=== PATIENT | male | born 1950 | race Caucasian/White ===

== ENCOUNTER 2019-10-30 17:20 | Observation (INO) | payer MEDICARE, MEDICAID ==
[2019-10-30] MEDS ORDERED: Lidocaine 2% 100 MG/5 ML Syringe IVPUSH PRN (18:18)
[2019-10-30] MEDS ORDERED: Sodium Chloride 0.9% 10 ML Syringe FLUSH PRN (18:18)
[2019-10-30] MEDS ORDERED: EPINEPHrine 1:10,000 1 MG/10 ML Syringe IVPUSH PRN (18:18)
[2019-10-30] MEDS ORDERED: Atropine 0.1 MG/ML 10 ML Syringe IVPUSH PRN (18:18)
[2019-10-30] MEDS ORDERED: Nitroglycerin 0.4 MG Tab.SL SL PRN (18:18)
[2019-10-30] MEDS ORDERED: Aspirin 81 MG Tab.Chew PO ONE (18:22)
[2019-10-30 18:43] LABS: ANION GAP 17.6 mmol/L (5-15); CHLORIDE,CL 102 mmol/L (98-115); SODIUM,NA 139 mmol/L (136-145)
[2019-10-30] MEDS ORDERED: Alum Hydrox/Mag Hydrox/Simeth 30 ML, Lidocaine 2% 15 ML PO ONE ×2 (20:30)
[2019-10-30] MEDS ORDERED: Melatonin 3 MG Tab PO PRN (21:00)
[2019-10-31] MEDS ORDERED: [UNRECOGNIZED DRUG - OTHER] PO SCH (09:00)
[2019-10-31] MEDS ORDERED: Rosuvastatin 10 MG Tab PO SCH (09:00)
[2019-10-31] MEDS ORDERED: Lisinopril 20 MG Tab PO SCH (09:00)
[2019-10-31] MEDS ORDERED: Aspirin 81 MG Tab.EC PO SCH (09:00)
[2019-10-31] MEDS ORDERED: HYDROCHLOROTHIAZIDE PO SCH (09:00)
[2019-10-31] MEDS ORDERED: BISOPROLOL PO SCH (09:00)
--- NOTE | 2019-10-31 09:51 | PCM.DCSUM1 ---
Discharge Summary - Hospital Course Diagnosis: Stroke: No - Discharge Data Discharge Date: 10/31/19 Discharge Disposition: Home, Self-Care 01 Condition: Good - Referral to Home Health Primary Care Physician: Wanda Cueva MD - Patient Instructions Activity: No Strenuous Activities Driving: May Drive Today Showering/Bathing: May Shower Notify Provider of: Increased Pain, Nausea and/or Vomiting (report any more chest pain sweating this jaw numbness or pain or any radiation down your arm or back) - Discharge Plan *PRESCRIPTION DRUG MONITORING PROGRAM REVIEWED*: Not Applicable *COPY OF PRESCRIPTION DRUG MONITORING REPORT IN PATIENT HUMZA: Not Applicable Prescriptions/Med Rec: Isosorbide Mononitrate [Imdur] 30 mg PO DAILY #30 tab.er Omeprazole 20 mg PO DAILY #30 capsule. Home Medications: Home Meds Aspirin [Halfprin] 81 mg PO DAILY 08/15/13 [History] Bisoprolol/Hydrochlorothiazide [Bisoprolol/HCTZ 5-6.25 MG] 1 tab PO DAILY [History] Lisinopril 20 mg PO DAILY 08/15/13 [History] Rosuvastatin [Crestor] 20 mg PO DAILY 08/15/13 [History] Isosorbide Mononitrate [Imdur] 30 mg PO DAILY #30 tab.er 10/31/19 [Rx] Omeprazole 20 mg PO DAILY #30 capsule. 10/31/19 [Rx] Referrals: Yumi Stone NP [Nurse Practitioner] - 11/06/19 2:00 pm (ANYTIME NEXT WEEK OR ANYBODY OF HIS CHOICE) - Discharge Summary/Plan Comment DC Time >30 min.: No Discharge Summary/Plan Comment: Final diagnosis ACS ruled out Rule out CAD; intermediate pretest probability Atypical angina History summary Mr Young is a obese 68 year old male who was admitted into observation yesterday by Yumi Stone nurse practitioner from [facility]. Patient was seen and evaluated when he came in due to cough and chest tightness. Although he reported in the clinic day of admission a 1-week history of intermittent chest tightness he tells this bid writer that he has had this probably longer with symptoms occur at rest no much with activity. Denies claudication No associated symptoms of dyspnea, diaphoresis, nausea, or vomiting or acid reflux type symptoms or water brash--however mild dry cough in the a.m. Denied any radiation of pain or chest palpitations. He does notes mild anxiety/ nervousness. Denies claudication. Pertinent past medical history --former smoker for 4-5 years quitting 40 years ago. --No Hx of heart issues. --HTN, controlled. ASA for primary prevention --HLD, favorable profile reviewed- [place] --Obesity Hospital course Uneventful without chest pain. No overnight abberancy noted on overnight ECG telemetry strips. His initial troponin was 0.08 however negative serialization. Reviewing of patient's admitting ECG does have some anterior lateral ichemia note with inverted T waves--patient was asymptomatic Medication changes/adjustments upon discharge Imdur low-dose 30 mg p.o. daily (newly added) Omeprazole, 20 mg p.o. daily, 301 refill Continue aspirin Due to the patient's modifiable/non-modifiable risk factors with history will need outpatient stress test - General Info Functional Status: Reports: Pain Controlled, Tolerating Diet. Denies: New Symptoms - Review of Systems General: Reports: No Symptoms HEENT: Reports: No Symptoms Pulmonary: Reports: No Symptoms Cardiovascular: Denies: Chest Pain, Palpitations, Dyspnea on Exertion, Orthopnea , PND, Edema, Lightheadedness Gastrointestinal: Reports: No Symptoms. Denies: Decreased Appetite, Nausea Musculoskeletal: Denies: Neck Pain, Shoulder Pain, Arm Pain, Back Pain Skin: Reports: No Symptoms Neurological: Denies: Confusion Psychiatric: Reports: No Symptoms - Patient Data Vitals - Most Recent: Last Vital Signs Temp 98.2 F 10/31/19 06:38 Pulse 84 10/31/19 06:38 Resp 20 10/31/19 06:38 BP 147/98 H 10/31/19 08:07 Pulse Ox 97 10/31/19 06:45 Weight - Most Recent: 197 lb 9 oz I&O - Last 24 hours: Intake & Output 10/30/19 10/31/19 10/31/19 22:59 06:59 14:59 Intake Total 620 100 Balance 620 100 Lab Results - Last 24 hrs: Laboratory Results - last 24 hr 10/30/19 10/30/19 10/31/19 Range/Units 06:15 06:15 00:04 WBC 7.88 (5.00-10.00) 10^3/uL RBC 5.31 (4.50-6.00) 10^6/uL Hgb 16.5 (13.0-17.0) g/dL Hct 48.0 (40.0-52.0) % MCV 90.4 (82.0-92.0) fL MCH 31.1 H (27.0-31.0) pg MCHC 34.4 (32.0-36.0) g/dL RDW 12.2 (11.5-14.5) % Plt Count 286 (150-400) 10^3/uL MPV 9.7 (7.4-10.4) fL Immature Gran % (Auto) 0.3 (0.0-5.0) % Neut % (Auto) 58.9 (50.0-70.0) % Lymph % (Auto) 27.3 (20.0-40.0) % [place] % (Auto) 12.7 H (2.0-8.0) % Eos % (Auto) 0.4 L (1.0-3.0) % Baso % (Auto) 0.4 (0.0-1.0) % Immature Gran # (Auto) 0.02 (0.00-0.50) 10^3/uL Neut # (Auto) 4.65 (2.50-7.00) 10^3/uL Lymph # (Auto) 2.15 (1.00-4.00) 10^3/uL [place] # (Auto) 1.00 H (0.10-0.80) 10^3/uL Eos # (Auto) 0.03 L (0.10-0.30) 10^3/uL Baso # (Auto) 0.03 (0.00-0.10) 10^3/uL Sodium 139 (136-145) mmol/L Potassium 4.6 (3.3-5.3) mmol/L Chloride 102 (98-115) mmol/L Carbon Dioxide 24.0 (21.0-32.0) mmol/L Anion Gap 17.6 H (5-15) mmol/L BUN 20 (6-25) mg/dL Creatinine 0.67 (0.51-1.17) mg/dL Est Cr Clr Drug Dosing TNP Estimated GFR (MDRD) > 60 mL/min Glucose 101 H (75 - 99) mg/dL Calcium 9.0 (8.7-10.3) mg/dL Total Bilirubin 0.8 (0.2-1.0) mg/dL AST 56 H (15-37) U/L ALT 68 (12-78) U/L Alkaline Phosphatase 38 L (46-116) IU/L Troponin I 0.08 H* 0.06 (0.00-0.070) ng/mL Total Protein 7.8 (6.4-8.2) g/dL Albumin 3.96 (3.00-4.80) g/dL 10/31/19 Range/Units 06:50 WBC (5.00-10.00) 10^3/uL RBC (4.50-6.00) 10^6/uL Hgb (13.0-17.0) g/dL Hct (40.0-52.0) % MCV (82.0-92.0) fL MCH (27.0-31.0) pg MCHC (32.0-36.0) g/dL RDW (11.5-14.5) % Plt Count (150-400) 10^3/uL MPV (7.4-10.4) fL Immature Gran % (Auto) (0.0-5.0) % Neut % (Auto) (50.0-70.0) % Lymph % (Auto) (20.0-40.0) % [place] % (Auto) (2.0-8.0) % Eos % (Auto) (1.0-3.0) % Baso % (Auto) (0.0-1.0) % Immature Gran # (Auto) (0.00-0.50) 10^3/uL Neut # (Auto) (2.50-7.00) 10^3/uL Lymph # (Auto) (1.00-4.00) 10^3/uL [place] # (Auto) (0.10-0.80) 10^3/uL Eos # (Auto) (0.10-0.30) 10^3/uL Baso # (Auto) (0.00-0.10) 10^3/uL Sodium (136-145) mmol/L Potassium (3.3-5.3) mmol/L Chloride (98-115) mmol/L Carbon Dioxide (21.0-32.0) mmol/L Anion Gap (5-15) mmol/L BUN (6-25) mg/dL Creatinine (0.51-1.17) mg/dL Est Cr Clr Drug Dosing Estimated GFR (MDRD) mL/min Glucose (75 - 99) mg/dL Calcium (8.7-10.3) mg/dL Total Bilirubin (0.2-1.0) mg/dL AST (15-37) U/L ALT (12-78) U/L Alkaline Phosphatase (46-116) IU/L Troponin I < 0.04 (0.00-0.070) ng/mL Total Protein (6.4-8.2) g/dL Albumin (3.00-4.80) g/dL Med Orders - Current: Current Medications Aspirin (Halfprin) 81 mg PO DAILY [facility] Last Admin: 10/31/19 08:06 Dose: 81 mg Atropine Sulfate (Atropine 0.1 Mg/Ml) 0 mg IVPUSH ASDIRECTED PRN PRN Reason: Heart. Epinephrine HCl (Epinephrine 1:10,000) 1 mg IVPUSH ASDIRECTED PRN PRN Reason: Heart. Lidocaine HCl (Xylocaine 2%) 0 mg IVPUSH ASDIRECTED PRN PRN Reason: Heart. Lisinopril (Prinivil) 20 mg PO DAILY [facility] Last Admin: 10/31/19 08:07 Dose: 20 mg Melatonin (Melatonin) 3 mg PO BEDTIME PRN PRN Reason: Insomnia Last Admin: 10/30/19 23:04 Dose: 3 mg Nitroglycerin (Nitrostat) 0.4 mg SL ASDIRECTED PRN PRN Reason: Heart. Non-Formulary Medication (Bisoprolol/Hydrochlorothiazide [Bisoprolol/Hctz 5- 6.25 Mg]) 1 tab PO DAILY [facility] Rosuvastatin Calcium (Crestor) 20 mg PO DAILY [facility] Last Admin: 10/31/19 08:06 Dose: 20 mg Sodium Chloride (Saline Flush) 10 ml FLUSH Q8HR PRN PRN Reason: keep vein open Last Admin: 10/30/19 22:00 Dose: 10 ml Discontinued Medications Aspirin (Aspirin) 324 mg PO ONETIME ONE Stop: 10/30/19 18:23 Last Admin: 10/30/19 18:28 Dose: 324 mg Al Hydroxide/Mg Hydroxide 30 (ml/ Lidocaine HCl 15 ml) 0 ml PO ONETIME ONE Stop: 10/30/19 20:31 Last Admin: 10/30/19 21:11 Dose: 45 ml - Exam Quality Assessment: Denies: Supplemental Oxygen General: Reports: Alert, Oriented Neck: Reports: Supple Lungs: Reports: Clear to Auscultation, Normal Respiratory Effort Cardiovascular: Reports: Regular Rate, Regular Rhythm GI/Abdominal Exam: Normal Bowel Sounds, Soft Back Exam: Denies: CVA Tenderness (L), CVA Tenderness (R) Extremities: No Pedal Edema Psy/Mental Status: Reports: Alert, Normal Affect, Normal Mood
== END 2019-10-31 11:40 | disposition home or self-care (01) ==
LOC: KA.MS 17:20
PROVIDERS: ADMIT Nurse Practitioner Family; ATTEND Family Medicine
DX: R07.89 Other chest pain (principal); R94.31 Abnormal electrocardiogram [ECG] [EKG]; I10 Essential (primary) hypertension; E78.5 Hyperlipidemia, unspecified; E66.9 Obesity, unspecified; Z79.82 Long term (current) use of aspirin; Z79.899 Other long term (current) drug therapy; Z87.891 Personal history of nicotine dependence; Z68.34 Body mass index [BMI] 34.0-34.9, adult
CPT/HCPCS: 36415; 80053; 84484; 85025; A9270; G0378

== ENCOUNTER 2021-04-30 19:22 | Emergency (ER) | payer MEDICARE, MEDICAID ==
[2021-04-30] MEDS ORDERED: Sodium Chloride 0.9% 10 ML Syringe FLUSH PRN (19:34)
--- NOTE | 2021-04-30 20:00 | EDM.PDOC ---
ED HPI GENERAL MEDICAL PROBLEM - General Chief Complaint: General Stated Complaint: GENERALIZED WEAKNESS/LIGHTHEADEDNESS Time Seen by Provider: 04/30/21 19:45 Source of Information: Reports: Patient, Family History Limitations: Reports: No Limitations - History of Present Illness INITIAL COMMENTS - FREE TEXT/NARRATIVE: 70 YO WM PRESENTS TO ER ACCOMPANIED BY DAUGHTER WITH COMPLAINTS OF LIGHTHEADEDNESS AND GENERALIZED WEAKNESS WHICH BEGAN 7 DAYS AGO. PT WAS SEEN IN [facility] 04/26/21 [facility] [place] [facility] LAST NIGHT 04/29/2021 AND DISCHARGED FOR SIMILAR COMPLAINTS. FAMILY UNCLEAR OF LABS OR DIAGNOSIS. PT DENIES FEVER/CHILLS, NO COUGH/CONGESTION, NO SORE THROAT, NO SHORTNESS OF BREATH. PT DENIES CHEST PAIN, NO N/V/D, NO DIAPHORESIS, NO HEADACHE. PT CONTINUES TO STATE I JUST FEEL "TIRED". SAO2-95% RA, BP-140/80s AND AFEBRILE. Onset Date: 04/26/21 Duration: Week(s): (1) Location: Reports: Generalized Quality: Reports: Ache Severity: Mild Improves with: Reports: Rest Worsens with: Reports: Movement Associated Symptoms: Reports: No Other Symptoms, Malaise, Weakness - Related Data Allergies Allergy/AdvReac Type Severity Reaction Status Date / Time No Known Allergies Allergy Verified 04/30/21 19:25 Home Meds: Home Meds Aspirin [Halfprin] 81 mg PO DAILY 08/15/13 [History] Bisoprolol/Hydrochlorothiazide [Bisoprolol/HCTZ 5-6.25 MG] 1 tab PO DAILY 08/15/13 [History] Lisinopril 20 mg PO DAILY 08/15/13 [History] Rosuvastatin [Crestor] 20 mg PO DAILY 08/15/13 [History] Isosorbide Mononitrate [Imdur] 30 mg PO DAILY #30 tab.er 10/31/19 [Rx] Omeprazole 20 mg PO DAILY #30 capsule. 10/31/19 [Rx] predniSONE [Prednisone] 50 mg PO DAILY #3 tablet 04/30/21 [Rx] Past Medical History HEENT History: Reports: Other (See Below) Other HEENT History: reading glasses Cardiovascular History: Reports: High Cholesterol, Hypertension Musculoskeletal History: Reports: Other (See Below) Other Musculoskeletal History: lac to R little finger Endocrine/Metabolic History: Reports: Obesity/BMI 30+ - Infectious Disease History Infectious Disease History: Reports: Chicken Pox, Measles - Past Surgical History GI Surgical History: Reports: Colonoscopy Social & Family History - Family History Family Medical History: No Pertinent Family History - Caffeine Use Caffeine Use: Reports: Coffee Caffeine Use Comment: 2 cups a day ED ROS GENERAL - Review of Systems Review Of Systems: See Below Constitutional: Reports: Malaise, Weakness HEENT: Reports: No Symptoms Respiratory: Reports: No Symptoms Cardiovascular: Reports: No Symptoms Endocrine: Reports: No Symptoms GI/Abdominal: Reports: No Symptoms : Reports: No Symptoms Musculoskeletal: Reports: No Symptoms Skin: Reports: No Symptoms Neurological: Reports: Dizziness Psychiatric: Reports: No Symptoms Hematologic/Lymphatic: Reports: No Symptoms Immunologic: Reports: No Symptoms ED EXAM, GENERAL - Physical Exam Exam: See Below Exam Limited By: No Limitations General Appearance: Alert, WD/WN, No Apparent Distress Eye Exam: Bilateral Eye: EOMI, PERRL Ears: Normal External Exam, Normal Canal, Hearing Grossly Normal, Normal TMs Nose: Normal Inspection, Normal Mucosa, No Blood Throat/Mouth: Normal Inspection, Normal Lips, Normal Teeth, Normal Gums, Normal Oropharynx, Normal Voice, No Airway Compromise Head: Atraumatic, Normocephalic Neck: Normal Inspection, Supple, Non-Tender, Full Range of Motion Respiratory/Chest: No Respiratory Distress, Lungs Clear, Normal Breath Sounds, No Accessory Muscle Use, Chest Non-Tender Cardiovascular: Normal Peripheral Pulses, Regular Rate, Rhythm, No Edema, No Gallop, No JVD, No Murmur, No Rub GI/Abdominal: Normal Bowel Sounds, Soft, Non-Tender, No Organomegaly, No Distention, No Abnormal Bruit, No Mass Back Exam: Normal Inspection, Full Range of Motion, NT Extremities: Normal Inspection, Normal Range of Motion, Non-Tender, Normal Capillary Refill, No Pedal Edema Neurological: Alert, Oriented, CN II-XII Intact, Normal Cognition, Normal Gait, No Motor/Sensory Deficits Psychiatric: Normal Affect, Normal Mood Skin Exam: Warm, Dry, Intact, Normal Color, No Rash Lymphatic: No Adenopathy #1 Interpretation EKG Date: 04/30/21 Time: 19:49 Rhythm: NSR Rate (Beats/Min): 94 [place]: Normal P-Wave: Present QRS: Normal ST-T: Normal QT: Normal Comparison: NA - No Prior EKG Course - Vital Signs Last Recorded V/S: Last Vital Signs Temp 98.5 F 04/30/21 20:25 Pulse 88 04/30/21 20:00 Resp 20 04/30/21 20:00 BP 147/88 H 04/30/21 20:00 Pulse Ox 93 L 04/30/21 19:53 - Orders/Labs/Meds Orders: Active Orders 24 hr Category Date Time Status Peripheral IV Care [RC] . DIRECTED Care 04/30/21 19:34 Active RT Post Treatment Assessment [RC] Click to Edit Care 04/30/21 20:37 Ordered RT Pre-Treatment Assessment [RC] Click to Edit Care 04/30/21 20:37 Ordered Chest 2V [CR] Stat Exams 04/30/21 19:59 Ordered Albuterol [Ventolin HFA] Med 04/30/21 20:36 Ordered See Dose Instructions INH Q2H PRN Sodium Chloride 0.9% @ 999 MLS/HR (1000ml) Med 04/30/21 20:07 Ordered Sodium Chloride 0.9% [Normal Saline] 1,000 ml IV .BOLUS Sodium Chloride 0.9% [Saline Flush] Med 04/30/21 19:34 Active 10 ml FLUSH Q8HR PRN Peripheral IV Insertion Adult [OM.PC] Routine Oth 04/30/21 19:34 Ordered EKG 12 Lead [EK] Urgent Ther 04/30/21 19:34 Ordered Medication Orders Albuterol (Albuterol 8 Gm Inhaler) 0 gm INH Q2H PRN PRN Reason: Shortness of Breath Last Admin: 04/30/21 20:41 Dose: 1 puff Documented by: Sodium Chloride (Normal Saline) 1,000 mls @ 999 mls/hr IV .BOLUS ONE Stop: 04/30/21 21:07 Last Admin: 04/30/21 20:09 Dose: 999 mls/hr Documented by: JERI Sodium Chloride (Sodium Chloride 0.9% 10 Ml Syringe) 10 ml FLUSH Q8HR PRN PRN Reason: keep vein open Last Admin: 04/30/21 20:09 Dose: 10 ml Documented by: JERI Labs: Laboratory Tests 04/30/21 04/30/21 04/30/21 Range/Units 19:45 19:45 19:45 WBC 5.31 (5.00-10.00) 10^3/uL RBC 5.04 (4.50-6.00) 10^6/uL Hgb 15.7 (13.0-17.0) g/dL Hct 43.9 (40.0-52.0) % MCV 87.1 D (82.0-92.0) fL MCH 31.2 H (27.0-31.0) pg MCHC 35.8 (32.0-36.0) g/dL RDW 11.6 (11.5-14.5) % Plt Count 159 D (150-400) 10^3/uL MPV 9.7 (7.4-10.4) fL Sodium (136-145) mmol/L Potassium (3.5-5.1) mmol/L Chloride (98-107) mmol/L Carbon Dioxide (21.0-32.0) mmol/L Anion Gap (5-15) mmol/L BUN (7-18) mg/dL Creatinine (0.51-1.17) mg/dL Est Cr Clr Drug Dosing mL/min Estimated GFR (MDRD) mL/min Glucose (70-140) mg/dL Lactic Acid (0.4-2.0) mmol/L Calcium (8.7-10.3) mg/dL Total Bilirubin (0.2-1.0) mg/dL AST (15-37) U/L ALT (14-63) U/L Alkaline Phosphatase (46-116) U/L Total Protein (6.4-8.2) g/dL Albumin (3.40-5.00) g/dL Specimen Type Urinvoid Urine Color Yellow (YELLOW) Urine Appearance Clear (CLEAR) Urine pH 5.5 (5.0-9.0) Ur Specific [place] 1.020 (1.005-1.030) Urine Protein 100 H (NEGATIVE) mg/dL Urine Glucose (UA) Negative (NEGATIVE) mg/dL Urine Ketones Negative (NEGATIVE) mg/dL Urine Occult Blood Trace-intact H (NEGATIVE) Urine Nitrite Negative (NEGATIVE) Urine Bilirubin Negative (NEGATIVE) Urine Urobilinogen 1.0 (0.2-1.0) E.U./dL Ur Leukocyte Esterase Negative (NEGATIVE) Urine RBC 0-5 (0-5) /HPF Urine WBC 0-5 (0-5) /HPF Ur Epithelial Cells Few /LPF Urine Bacteria Rare (NONE TO FEW) /HPF Urine Mucus Few H (NEGATIVE) /LPF SARS CoV-2 RNA Rapid [place] Positive H (NEGATIVE) 04/30/21 04/30/21 Range/Units 19:45 19:45 WBC (5.00-10.00) 10^3/uL RBC (4.50-6.00) 10^6/uL Hgb (13.0-17.0) g/dL Hct (40.0-52.0) % MCV (82.0-92.0) fL MCH (27.0-31.0) pg MCHC (32.0-36.0) g/dL RDW (11.5-14.5) % Plt Count (150-400) 10^3/uL MPV (7.4-10.4) fL Sodium 133 L (136-145) mmol/L Potassium 3.8 (3.5-5.1) mmol/L Chloride 98 (98-107) mmol/L Carbon Dioxide 24.2 (21.0-32.0) mmol/L Anion Gap 14.6 (5-15) mmol/L BUN 10 (7-18) mg/dL Creatinine 0.76 (0.51-1.17) mg/dL Est Cr Clr Drug Dosing 89.15 mL/min Estimated GFR (MDRD) > 60 mL/min Glucose 140 (70-140) mg/dL Lactic Acid 0.8 (0.4-2.0) mmol/L Calcium 8.2 L (8.7-10.3) mg/dL Total Bilirubin 0.6 (0.2-1.0) mg/dL AST 54 H (15-37) U/L ALT 43 (14-63) U/L Alkaline Phosphatase 40 L (46-116) U/L Total Protein 6.9 (6.4-8.2) g/dL Albumin 2.97 L (3.40-5.00) g/dL Specimen Type Urine Color (YELLOW) Urine Appearance (CLEAR) Urine pH (5.0-9.0) Ur Specific [place] (1.005-1.030) Urine Protein (NEGATIVE) mg/dL Urine Glucose (UA) (NEGATIVE) mg/dL Urine Ketones (NEGATIVE) mg/dL Urine Occult Blood (NEGATIVE) Urine Nitrite (NEGATIVE) Urine Bilirubin (NEGATIVE) Urine Urobilinogen (0.2-1.0) E.U./dL Ur Leukocyte Esterase (NEGATIVE) Urine RBC (0-5) /HPF Urine WBC (0-5) /HPF Ur Epithelial Cells /LPF Urine Bacteria (NONE TO FEW) /HPF Urine Mucus (NEGATIVE) /LPF SARS CoV-2 RNA Rapid [place] (NEGATIVE) Meds: Medications Generic Name Dose Route Start Last Admin Trade Name Freq PRN Reason Stop Dose Admin Albuterol 0 gm 04/30/21 20:36 04/30/21 20:41 Albuterol 8 Gm Inhaler INH 1 puff Q2H PRN Administration Shortness of Breath Sodium Chloride 1,000 mls @ 999 mls/hr 04/30/21 20:07 04/30/21 20:09 Normal Saline IV 04/30/21 21:07 999 mls/hr .BOLUS ONE Administration Sodium Chloride 10 ml 04/30/21 19:34 04/30/21 20:09 Sodium Chloride 0.9% 10 Ml Syringe FLUSH 10 ml Q8HR PRN Administration keep vein open Discontinued Medications Generic Name Dose Route Start Last Admin Trade Name Freq PRN Reason Stop Dose Admin Acetaminophen 1,000 mg 04/30/21 20:21 04/30/21 20:25 Acetaminophen 500 Mg Tab PO 04/30/21 20:22 1,000 mg ONETIME ONE Administration Dexamethasone 6 mg 04/30/21 20:19 04/30/21 20:25 Dexamethasone 4 Mg/Ml Sdv IVPUSH 04/30/21 20:20 6 mg ONETIME ONE Administration Sodium Chloride Confirm 04/30/21 20:08 04/30/21 20:23 Normal Saline Administered 04/30/21 20:09 Not Given Dose 1,000 mls @ as directed .ROUTE .STK-MED ONE Prednisone 60 mg 04/30/21 20:36 04/30/21 20:41 Prednisone 20 Mg Tab PO 04/30/21 20:37 60 mg ONETIME ONE Administration Departure - Departure Time of Disposition: 20:34 Disposition: Home, Self-Care 01 Condition: Fair Clinical Impression: COVID-19, Pneumonia due to COVID-19 virus - Discharge Information Prescriptions: predniSONE [Prednisone] 50 mg PO DAILY #3 tablet Instructions: 10 Things You Can Do to Manage Your COVID-19 Symptoms at Home - [facility] (01/28/2021), Community-Acquired Pneumonia, Adult Referrals: Wanda Cueva MD [Primary Care Provider] - Forms: ED Department Discharge Additional Instructions: 1. DISCHARGE HOME 2. ZINC 50MG DAILY, VIT C 1000MG TWICE/DAY AND VIT D3 25UG DAILY 3. PREDNISONE 60MG DAILY X 5 DAYS 4. ALBUTEROL INHALER 2 PUFF EVERY 4 HOURS AND NEEDED 5. QUARANTINE FOR 10 DAYS FROM TIME OF SYMPTOMS- UNTIL 05/03/2021 IF FEELING BETTER 6. RETURN TO ER FOR SHORTNESS OF BREATH 7. TYLENOL 1000MG EVERY 6 HOURS/MOTRIN 600MG EVERY 6 HOURS NEEDED FOR SYMPTOMS 8. FOLLOW UP IN CLINIC NEEDED FOR FURTHER MANAGEMENT Sepsis Event Note (ED) - Evaluation Sepsis Screening Result: No Definite Risk - Focused Exam Vital Signs: Vital Signs Temp Temp Pulse Resp BP Pulse Ox 04/30/21 20:25 98.5 F 04/30/21 20:00 88 20 147/88 H 04/30/21 19:53 98.5 F 90 20 142/86 H 93 L - My Orders Last 24 Hours: My Active Orders 04/30/21 19:34 Peripheral IV Care [RC] . DIRECTED Sodium Chloride 0.9% [Saline Flush] 10 ml FLUSH Q8HR PRN Peripheral IV Insertion Adult [OM.PC] Routine EKG 12 Lead [EK] Urgent 04/30/21 19:59 Chest 2V [CR] Stat 04/30/21 20:07 Sodium Chloride 0.9% @ 999 MLS/HR (1000ml) Sodium Chloride 0.9% [Normal Saline] 1,000 ml IV .BOLUS 04/30/21 20:36 Albuterol [Ventolin HFA] See Dose Instructions INH Q2H PRN 04/30/21 20:37 RT Post Treatment Assessment [RC] Click to Edit RT Pre-Treatment Assessment [RC] Click to Edit - Assessment/Plan Last 24 Hours: My Active Orders 04/30/21 19:34 Peripheral IV Care [RC] . DIRECTED Sodium Chloride 0.9% [Saline Flush] 10 ml FLUSH Q8HR PRN Peripheral IV Insertion Adult [OM.PC] Routine EKG 12 Lead [EK] Urgent 04/30/21 19:59 Chest 2V [CR] Stat 04/30/21 20:07 Sodium Chloride 0.9% @ 999 MLS/HR (1000ml) Sodium Chloride 0.9% [Normal Saline] 1,000 ml IV .BOLUS 04/30/21 20:36 Albuterol [Ventolin HFA] See Dose Instructions INH Q2H PRN 04/30/21 20:37 RT Post Treatment Assessment [RC] Click to Edit RT Pre-Treatment Assessment [RC] Click to Edit Assessment:: 1. POSITIVE FOR COVID-19 2. COVID PNEUMONIA Plan: 1. DISCHARGE HOME 2. ZINC 50MG DAILY, VIT C 1000MG TWICE/DAY AND VIT D3 25UG DAILY 3. PREDNISONE 60MG DAILY X 5 DAYS 4. ALBUTEROL INHALER 2 PUFF EVERY 4 HOURS AND NEEDED 5. QUARANTINE FOR 10 DAYS FROM TIME OF SYMPTOMS- UNTIL 05/03/2021 IF FEELING BETTER 6. RETURN TO ER FOR SHORTNESS OF BREATH 7. TYLENOL 1000MG EVERY 6 HOURS/MOTRIN 600MG EVERY 6 HOURS NEEDED FOR SYMPTOMS 8. FOLLOW UP IN CLINIC NEEDED FOR FURTHER MANAGEMENT
[2021-04-30] MEDS ORDERED: Sodium Chloride 0.9% 1,000 ML IV ONE (20:07)
[2021-04-30 20:08] LABS: ANION GAP 14.6 mmol/L (5-15); CHLORIDE,CL 98 mmol/L (98-107); SODIUM,NA 133 mmol/L (136-145)
[2021-04-30] MEDS ORDERED: Sodium Chloride 0.9% 1,000 ML ONE (20:08)
[2021-04-30] MEDS ORDERED: Dexamethasone 4 MG/ML SDV IVPUSH ONE (20:19)
[2021-04-30] MEDS ORDERED: Acetaminophen 500 MG Tab PO ONE (20:21)
[2021-04-30] MEDS ORDERED: predniSONE 20 MG Tab PO ONE (20:36)
[2021-04-30] MEDS ORDERED: Albuterol 8 GM Inhaler INH PRN (20:36)
--- NOTE | 2021-05-01 12:05 | CR ---
[id number] RAD/RAD Chest PA And Lateral EXAM: RAD Chest PA And Lateral INDICATION: WEAKNESS COMPARISON: None. DISCUSSION: Cardiomediastinal silhouette is normal in size and contour. Patchy pulmonary infiltrates bilaterally most pronounced at the lung bases. No pneumothorax or pleural effusion IMPRESSION: Patchy pulmonary infiltrates bilaterally most pronounced at the lung bases. Findings are likely infectious/inflammatory in nature as can be seen with atypical/viral pneumonia. This includes COVID pneumonia. Yaniv Piedra DO 05/01/21 [id number] Thank you for allowing us to participate in the care of your patient.
== END 2021-04-30 21:11 | disposition home or self-care (01) ==
LOC: KA.ED 19:22
DX: U07.1 COVID-19 (principal); J12.82 Pneumonia due to coronavirus disease 2019; E78.00 Pure hypercholesterolemia, unspecified; I10 Essential (primary) hypertension; E66.9 Obesity, unspecified; Z68.26 Body mass index [BMI] 26.0-26.9, adult; Z79.82 Long term (current) use of aspirin; Z79.899 Other long term (current) drug therapy
CPT/HCPCS: 36415; 71046; 80053; 81001; 83605; 85027; 93005; 96374; 99285; A9270; J1100; J7030; J7512; U0002; 93010; 99284

== ENCOUNTER 2023-11-13 06:56 | Day surgery (SDC) | payer MEDICARE, MEDICAID ==
[2023-11-13] MEDS ORDERED: Sodium Chloride 0.9% 10 ML Syringe FLUSH PRN (07:00)
[2023-11-13] MEDS: Sodium Chloride 0.9% 1,000 ML IV SCH (07:40)
[2023-11-13] MEDS ORDERED: Propofol 200 MG/20 ML SDV ONE (07:51)
[2023-11-13] MEDS ORDERED: Midazolam 1 MG/ML 2 ML SDV ONE (07:51)
[2023-11-13] MEDS: Sodium Chloride 0.9% 250 ML IV SCH (09:20)
== END 2023-11-13 10:20 | disposition home or self-care (01) ==
LOC: KA.SDS 06:56
PROVIDERS: ATTEND Family Medicine
DX: Z12.11 Encounter for screening for malignant neoplasm of colon (principal); D12.6 Benign neoplasm of colon, unspecified; D12.8 Benign neoplasm of rectum; K64.8 Other hemorrhoids; K57.30 Diverticulosis of large intestine without perforation or abscess without bleeding; I10 Essential (primary) hypertension; E11.9 Type 2 diabetes mellitus without complications; E78.5 Hyperlipidemia, unspecified; Z87.891 Personal history of nicotine dependence; Z79.84 Long term (current) use of oral hypoglycemic drugs; Z79.899 Other long term (current) drug therapy
CPT/HCPCS: 00811; 82947; 88305; 99100; J2250; J2704; J3490; J7030; J7050